=== PATIENT | male | born 1970 | race Caucasian/White ===

== ENCOUNTER 2022-11-29 10:53 | Emergency (ER) | payer MEDICAID ==
[~2022-11-29] VITALS: Ht 172.7 cm; Wt 99.0 kg
[2022-11-29 11:02] VITALS: O2SAT 99
[2022-11-29] MEDS ORDERED: LORAZEPAM 2MG/ML CPJ IV ONE (11:30)
[2022-11-29] MEDS ORDERED: SODIUM CHLORIDE 0.9% IV ONE (11:30)
[2022-11-29 11:54] LABS: BASOPHILS % 0.2 % (0.0-2.0); EOSINOPHILS % 0.1 % (0.0-5.0); HEMATOCRIT. 47.8 % (42.0-52.0); HEMOGLOBIN. 16.8 g/dL (14.0-18.0); LYMPHOCYTES % 14.2 % (20.0-50.0); MEAN CORPUSCULAR HEMOGLOBIN 31.5 pg (28.0-32.0); MEAN CORPUSCULAR VOLUME 89.4 fL (80.0-94.0); MEAN PLATELET VOLUME 6.6 fl (7.4-10.4); MONOCYTES % 5.4 % (2.0-8.0); NEUTROPHILS % 80.1 % (40.0-76.0); PLATELET 237 x1000/uL (130-400); RED BLOOD CELL COUNT 5.35 mill/uL (4.7-6.1)
[2022-11-29 12:01] LABS: CHLORIDE 106 mEq/L (98-107)
[2022-11-29 12:07] LABS: ETHANOL BLOOD 175 mg/dL (-10)
[2022-11-29] MEDS ORDERED: LORAZEPAM 2MG/ML CPJ IV NR (13:30)
[2022-11-29] MEDS ORDERED: FAMO-134 MT (14:08)
[2022-11-29 16:53] VITALS: BP 179/92; PULSE 96; RESP 16; TEMP 99.5
== END 2022-11-29 16:54 | disposition home or self-care (01) ==
LOC: ER 10:53
DX: F10.239 Alcohol dependence with withdrawal, unspecified (principal); R07.89 Other chest pain; Y90.6 Blood alcohol level of 120-199 mg/100 ml
CPT/HCPCS: 80053; 80320; 83690; 85025; 84484; 36415; 93005; 96361; 96374; 99284; J2060; J7030; Z7610 ×4; G0480